=== PATIENT | male | born 1950 | race Caucasian/White ===

== ENCOUNTER 2019-05-15 09:30 | Emergency (ER) | payer OTHER ==
[~2019-05-15] VITALS: Ht 177.8 cm; Wt 83.9 kg
[2019-05-15 09:30] VITALS: BP_SYST 196
--- NOTE | 2019-05-15 09:30 | NUR ---
BROUGHT BACK TO BED #4 AND TRIAGED. REPORT GIVEN TO ANNALISA
--- NOTE | 2019-05-15 10:27 | NUR ---
PATIENT PRESENTS TO THE ER WITH 26 HOUR HX OF FALL AFTER CHASING A COYOTE AND FALLING ONTO THE GRAVEL/DIRT SURFACE WITH TRAUMA TO RIGHT POSTERIOR FOREARM AND POSTERIOR RIGHT HAND; HAND IS SWOLLEN AND THE FOREARM HAS PARTIALLY HEALED ABRASIONS; PATIENT ALSO STATES PAIN TO UPPER RIGHT ARM; NO LOC, NO OTHER TRAUMA, NO OTHER REMARKABLE S/S; FULL DISTAL N/C/R IS INTACT; TO ER #4 AT 0930 AND SEEN BY ERMD AT 0940
--- NOTE | 2019-05-15 11:18 | NUR ---
Patient given written and verbal discharge instructions and verbalizes understanding. ER MD discussed with patient the results and treatment provided. Patient in stable condition. ID arm band removed. Rx of NONE given. Patient educated on pain management and to follow up with PMD. Pain Scale 0/10. Opportunity for questions provided and answered. Medication side effect fact sheet provided.
== END 2019-05-15 11:18 | disposition home or self-care (01) ==
LOC: SED 09:30
DX: S60.221A Contusion of right hand, initial encounter (principal); W18.39XA Other fall on same level, initial encounter; Y93.89 Activity, other specified; Y92.89 Other specified places as the place of occurrence of the external cause; Y99.8 Other external cause status
CPT/HCPCS: 73090; 99283

== ENCOUNTER 2022-12-15 15:00 | Emergency (ER) | payer MEDICARE, OTHER ==
[~2022-12-15] VITALS: Ht 175.3 cm; Wt 89.8 kg
[2022-12-15 15:11] VITALS: BP_SYST 145; PULSE 68; RESP 19; TEMP 98.2; O2SAT 98
--- NOTE | 2022-12-15 15:14 | NUR ---
Placed in room 01 . Placed on classroom monitor, blood pressure machine and pulse oximeter. To gown for exam. Side rails up. Report given to ARISTEO Gonzales
--- NOTE | 2022-12-15 15:15 | NUR ---
RECEIVED PT FROM ARISTEO ZEPEDA. PT BIB WITH C/O "throat flutter" intermittently x 1 week with abd cramping today. PT IS AAOX4. ON R/A, TELEMONITOR SHOWS NSR. DENIES N/V/D/C. DISTAL PULSES WEAK, SKIN CDI, NO EDEMA NOTED. DENIES PAIN AT THIS TIME. PMH: HTN, HLD.
--- NOTE | 2022-12-15 15:30 | NUR ---
DR. TANG AT BEDSIDE TO ASSESS PT.
--- NOTE | 2022-12-15 15:38 | NUR ---
MD DR TANG AT BEDSIDE
--- NOTE | 2022-12-15 15:40 | NUR ---
EKG OBTAINED AND GIVEN TO DR. TANG.
[2022-12-15] MEDS ORDERED: OMEP40CA20 PO (16:15)
[2022-12-15 17:10] VITALS: BP_SYST 150; PULSE 60; RESP 20; TEMP 97.8; O2SAT 94
--- NOTE | 2022-12-15 17:33 | NUR ---
Patient given written and verbal discharge instructions and verbalizes understanding. ER MD discussed with patient the results and treatment provided. Patient in stable condition. ID arm band removed. Rx of OMEPRAZOLE given. Patient educated on pain management and to follow up with PMD. Pain Scale 0/10.
== END 2022-12-15 17:33 | disposition home or self-care (01) ==
LOC: SED 15:00
DX: R10.30 Lower abdominal pain, unspecified (principal); R00.2 Palpitations; I10 Essential (primary) hypertension; Z79.899 Other long term (current) drug therapy
CPT/HCPCS: 93005; 99283